=== PATIENT | female | born 1995 | race Caucasian/White ===

== ENCOUNTER → 2025-05-04 | Outpatient (CLI) | payer OTHER ==
[2025-05-04 12:06] LABS: BASO # 0.0 10*3/uL (0.0-0.1); BASO % 0.5 % (0.0-1.0); EOS # 0.2 10*3/uL (0.0-0.4); EOS % 2.4 % (1.0-4.0); MEAN CELL VOLUME 89.5 fl (81.0-99.0); MEAN CORPUSCULAR HGB 30.6 pg (27.0-31.0); MEAN PLATELET VOLUME 9.4 fl (9.6-12.3); MONO # 0.5 10*3/uL (0.1-1.0); MONO % 5.5 % (3.0-9.0); NEUT # 6.3 10*3/uL (2.3-7.9); NEUT % 71.5 % (47.0-73.0); NUCLEATED RED BLOOD CELL 0.0 % (0.0-0.0); NUCLEATED RED BLOOD CELL 0.0 10*3/uL (0.0-0.0); PLATELET COUNT AUTOMATED 357 10*3/uL (130-400); RED CELL DISTRI WIDTH 13.6 % (0-14.5)
[2025-05-04 12:40] LABS: BUN 12 mg/dl (9-23); LDL CHOLESTEROL 83 mg/dL (9-159); SGPT/ALT 19 U/L (5-49)
[2025-05-04 13:41] LABS: VITAMIN D, 25-HYDROXY 24.4 ng/mL (30-100)
== END | disposition home or self-care (01) ==
LOC: LAB 11:27
PROVIDERS: ATTEND Registered Nurse
DX: Z13.1 Encounter for screening for diabetes mellitus (principal); Z11.59 Encounter for screening for other viral diseases; Z91.419 Personal history of unspecified adult abuse; Z13.220 Encounter for screening for lipoid disorders; F19.20 Other psychoactive substance dependence, uncomplicated